=== PATIENT | male | born 1990 | race Caucasian/White ===

== ENCOUNTER 2016-06-02 09:20 | Emergency (ER) | payer OTHER ==
[2016-06-02 09:29] VITALS: BP 182/91; PULSE 94; RESP 16; TEMP 97.9; O2SAT 99
[2016-06-02] MEDS ORDERED: IBUPROFEN 200 MG TAB PO ONE (10:18)
--- NOTE | 2016-06-02 10:40 | UCPHY ---
H & P Time Seen by Provider: 06/02/16 10:05 Patient Type: New HPI/ROS: This patient injured his foot doing squat lives 5 days prior to arrival. He did notice any pain immediately but shortly thereafter after squatting with heavy weights he started developing left forefoot pain that has increased over the past few days. He reports a currently at 6/10 at baseline becomes severe with weight-bearing. He notes associated forefoot swelling over the dorsum of his foot. He has had no significant improvement from ibuprofen prior to arrival. He has not taken ibuprofen today however. ROS: No other musculoskeletal pains. No fevers. No numbness or tingling. 5 point ROS is otherwise negative. Smoking Status: Current some day smoker Physical Exam: Physical Exam Vital signs are normal. General: No acute distress Eyes: Pupils equal and react to light. Extraocular motions are intact. Lungs: No respiratory distress. Cardiac: Brisk capillary refill is intact throughout. Pulses are 2+ and symmetric in the affected extremity. Skin: No rash or pallor. Extremities: Atraumatic normal except for left foot Left foot: Patient has mild swelling over the forefoot with associated tenderness throughout the forefoot and distal midfoot. No significant ankle swelling or tenderness. No discoloration. He also has mild plantar tenderness. Neuro: Alert and oriented x3 with no sensorimotor deficits. Initial differential diagnosis: Fracture versus sprain Constitutional: Initial Vital Signs Temperature (C) 36.6 C 06/02/16 09:26 Heart Rate 94 06/02/16 09:26 Respiratory Rate 16 06/02/16 09:26 Blood Pressure 182/91 H 06/02/16 09:26 O2 Sat (%) 99 06/02/16 09:26 O2 Delivery Mode Room Air Allergies/Adverse Reactions: No Known Allergies Allergy (Unverified 06/02/16 09:24) Home Medications: Medication Instructions Recorded Clonidine 06/02/16 Hydrocodone/APAP 5/325 [[place] 1 - 2 tab PO Q4PRN PRN #15 tab 06/02/16 5/325 (*)] Remeron 06/02/16 Wellbutrin Sr 06/02/16 MDM/Departure - MDM Diagnostics: Foot x-ray: No fracture by my interpretation Medications Given: Discontinued Medications Ibuprofen (Motrin) 800 mg PO EDNOW ONE Stop: 06/02/16 10:19 Last Admin: 06/02/16 10:35 Dose: 800 mg ED Course/Re-evaluation: Patient placed in a postop shoe. I counseled him regarding foot sprain. I also explained he could have a subtle occult fracture and he should follow up with the weasand trimmer if he has any symptoms that persist beyond the next 7-10 days - Depart Disposition: Home, Routine, Self-Care Clinical Impression: Sprain of foot, left Qualifiers: Encounter type: initial encounter Qualifier Code: (S93.602A) Unspecified sprain of left foot, initial encounter Condition: Good Instructions: Foot Sprain (ED), Crutch Instructions (ED) Additional Instructions: Diagnosis: Foot sprain Plan: Ice 20 minutes at a time few times a day for the next few days Ibuprofen-600 mg per 6 hours or 800 mg per 8 hours Tylenol or Vicodin in addition if needed for pain. No driving, alcohol or come Vicodin. Postop shoe when your up and about and use crutches. Follow up with the weasand trimmer-Dr. Hugo for any ongoing symptoms last beyond the next week. Prescriptions: Hydrocodone/APAP 5/325 [[place] 5/325 (*)] 1 - 2 tab PO Q4PRN PRN #15 tab PRN Reason: Pain - PQRS PQRS Measurement: NA
--- NOTE | 2016-06-02 10:51 | DX ---
Left foot, 3 views. History: forefoot pain - ? stress fx (occcured after squat exercises with heavy wts) Comparison examination:none available Findings: Moderate degenerative joint space narrowing of the first metatarsophalangeal joint. No fra cture identified. Normal alignment. Impression: Degenerative changes first MTP joint, otherwise negative.
== END 2016-06-02 11:03 | disposition home or self-care (01) ==
LOC: CED 09:20
DX: S93.602A Unspecified sprain of left foot, initial encounter (principal); X50.0XXA Overexertion from strenuous movement or load, initial encounter; F17.200 Nicotine dependence, unspecified, uncomplicated
CPT/HCPCS: 73630-PO; G0463-PO